=== PATIENT | male | born 1985 | race Caucasian/White ===

== ENCOUNTER 2019-05-24 23:33 | Emergency (ER) | payer OTHER ==
[~2019-05-24] VITALS: Ht 165.1 cm; Wt 72.6 kg
[2019-05-25] MEDS ORDERED: Flonase 0.05% N16 GM (00:13)
[2019-05-25] MEDS ORDERED: Augmentin 875-1 EACH PO (00:13)
== END 2019-05-25 00:30 | disposition home or self-care (01) ==
LOC: ER 23:33
DX: J01.90 Acute sinusitis, unspecified (principal); J32.1 Chronic frontal sinusitis; B96.89 Other specified bacterial agents as the cause of diseases classified elsewhere; F17.200 Nicotine dependence, unspecified, uncomplicated
CPT/HCPCS: 99282

== ENCOUNTER 2022-04-13 14:38 | Day surgery (SDC) | payer OTHER ==
[~2022-04-13] VITALS: Ht 167.6 cm; Wt 76.8 kg
[~2022-04-13 14:38] MED LIST: Augmentin 875-1 EACH PO; Flonase 0.05% N16 GM
[2022-04-13] MEDS ORDERED: LATANOPROST 0.7.5 M3 OP (15:23)
--- NOTE | 2022-04-13 15:25 | NUR ---
04/13/22 1525 Kofi Coello CALL LIGHT WITHIN REACH. JOCELIN IN AT 1515 IN RIGHT EYE AND AIME IN AT 1517
== END 2022-04-13 16:55 | disposition home or self-care (01) ==
LOC: ORSCSDS 14:38
PROVIDERS: Ophthalmology
PROC: 08DJ3ZZ Extraction of Right Lens, Percutaneous Approach (ICD-10-PCS; principal; 2022-04-13 16:00)
DX: H25.11 Age-related nuclear cataract, right eye (principal)
CPT/HCPCS: J2001; J2250; J3010; J3301; J7040; V2632

== ENCOUNTER 2022-05-04 13:10 | Day surgery (SDC) | payer OTHER ==
[~2022-05-04] VITALS: Ht 165.1 cm; Wt 76.4 kg
[~2022-05-04 13:10] MED LIST changes: +LATANOPROST 0.7.5 M3 OP
--- NOTE | 2022-05-04 13:48 | NUR ---
05/04/22 1348 Kofi Coello TETRACAINE TO LEFT EYE 1340 PLEDGET TO LEFT EYE AT 1342 BY [facility]
== END 2022-05-04 15:04 | disposition home or self-care (01) ==
LOC: ORSCSDS 13:10
PROVIDERS: Ophthalmology
PROC: 08DK3ZZ Extraction of Left Lens, Percutaneous Approach (ICD-10-PCS; principal; 2022-05-04 14:30)
DX: H25.12 Age-related nuclear cataract, left eye (principal); H30.22 Posterior cyclitis, left eye; Z96.1 Presence of intraocular lens; F17.210 Nicotine dependence, cigarettes, uncomplicated; Z79.899 Other long term (current) drug therapy
CPT/HCPCS: J2250; J3010; J3301; J7040; V2632

== ENCOUNTER 2023-05-20 12:51 | Inpatient (IN) | payer OTHER ==
[~2023-05-20] VITALS: Ht 165.1 cm; Wt 78.6 kg
[2023-05-20 14:52] LABS: BASOPHILS ABSOLUTE AUTO 0.06 K/mm3 (0.00-0.23); BASOPHILS PERCENT AUTO 1 % (0-2); EOSINOPHILS ABSOLUTE AUTO 0.22 K/mm3 (0.00-0.68); EOSINOPHILS PERCENT AUTO 2 % (0-6); Hematocrit 47.2 % (37.0-53.0); Hemoglobin 16.6 g/dL (13.5-17.5); IMMATURE GRAN ABSOLUTE AUTO 0.02 K/mm3 (0.00-0.10); IMMATURE GRAN PERCENT AUTO 0 % (0-1); LYMPHOCYTES PERCENT AUTO 30 % (21-46); MONOCYTES PERCENT AUTO 8 % (4-13); Mean Corpuscular HGB 34.8 pg (26.0-34.0); Mean Corpuscular HGB Conc 35.2 g/dL (31.5-36.5); Mean Corpuscular Volume 99 fL (80-100); Mean Platelet Volume 10.2 fL (9.1-12.4); NEUTROPHILS ABSOLUTE AUTO 6.26 K/mm3 (1.96-9.15); NEUTROPHILS PERCENT AUTO 60 % (41-73); Platelet Count 240 K/mm3 (150-400); RDW Coefficient Variation 11.9 % (11.7-14.2); RDW Standard Deviation 44.3 fL (35.1-46.3); Red Blood Cell Count 4.77 M/mm3 (4.30-5.90); White Blood Cell Count 10.46 K/mm3 (4.00-11.30)
[2023-05-20 15:09] LABS: Albumin, Blood 4.1 g/dL (3.4-5.0); Albumin/Globulin Ratio 1.3 (0.8-1.8); Bilirubin, Total 0.8 mg/dL (0.1-1.0); Bun/Creatinine Ratio 23.8 (12.0-20.0); C-REACTIVE PROTEIN, EXT RANGE 0.411 mg/dL (0.000-0.300); Calcium, Blood 9.2 mg/dL (8.5-10.1); Creatinine, Blood 0.71 mg/dL (0.60-1.20); Globulin, Blood 3.2 g/dL (2.2-4.0); Potassium, Blood 4.2 mmol/L (3.5-5.5); Total Protein, Blood 7.3 g/dL (6.4-8.2)
[2023-05-20] MEDS ORDERED: LISI20 PO (15:09)
[2023-05-20] MEDS ORDERED: Methocarbamol500 MG PO (15:10)
[2023-05-20] MEDS ORDERED: ATOR10 PO (15:11)
[2023-05-20] MEDS ORDERED: LATA.005SO BOTHEYES (15:12)
[2023-05-20] MEDS ORDERED: TADALAFIL5 M1 PO (15:12)
[2023-05-20] MEDS ORDERED: DEXTROSE 5% IV ONE (15:50)
[2023-05-20] MEDS ORDERED: METHYLPREDNISOLONE SOD SUCC IV ONE (15:50)
[2023-05-20 17:35] LABS: RBC Count, CSF 23 /mm3 (0-0); WBC Count, CSF 7 /mm3 (0-5)
[2023-05-20 17:43] LABS: RBC Count, CSF 0 /mm3 (0-0); WBC Count, CSF 3 /mm3 (0-5)
[2023-05-20 17:57] LABS: Appearance, CSF Clear (Clear); Color, CSF No Color (No Color)
[2023-05-20 18:25] LABS: Glucose, CSF 59 mg/dL (40-70)
[2023-05-20 18:30] LABS: Cryptococcus Neoformans/Gattii Not Detected (NOT DETECT); Enterovirus Not Detected (NOT DETECT); Escherichia Coli K1 Not Detected (NOT DETECT); Haemophilus Influenza Not Detected (NOT DETECT); Herpes Simplex Virus 1 Not Detected (NOT DETECT); Herpes Simplex Virus 2 Not Detected (NOT DETECT); Human Herpesvirus 6 Not Detected (NOT DETECT); Human Parechovirus Not Detected (NOT DETECT); Listeria Monocytogenes Not Detected (NOT DETECT); Neisseria Meningitidis Not Detected (NOT DETECT); Streptococcus Agalactiae Not Detected (NOT DETECT); Streptococcus Pneumoniae Not Detected (NOT DETECT); Varicella Zoster Virus Not Detected (NOT DETECT)
[2023-05-20] MEDS ORDERED: Acetaminophen 325 MG TABLET PO PRN (18:45)
[2023-05-20] MEDS ORDERED: Ondansetron HCl 2 MG / ML 2ML Vial IV PRN (18:45)
[2023-05-20] MEDS ORDERED: Methocarbamol 500 MG Tab PO PRN (18:45)
[2023-05-20] MEDS ORDERED: FLU VACC QS2023-24(6MOS UP)/PF 60 MCG/0.5 ML SYRINGE IM PRN (18:45)
[2023-05-20 19:19] LABS: Lymphocytes, CSF 64 % (40-80); Monocytes, CSF 36 % (15-45)
[2023-05-20] MEDS ORDERED: Atorvastatin 10 MG Tab PO SCH (21:00)
[2023-05-20] MEDS ORDERED: Latanoprost 0.005% Opth Soln 2.5 ML BOTHEYES SCH (21:00)
[2023-05-20 21:20] VITALS: BP 140/82
--- NOTE | 2023-05-21 05:19 | NUR ---
SHIFT SUMMERY , PT ARRIVED TO ROOM AND TRANSFRED HIMSELF TO BED. PTS AT BEDSIDE. PTS BROUGHT FOOD FOR PT TO EAT. PT HAS BEEN RESTING IN ROOM WITH AT BEDSIDE. CALL LIGHT IN REACH.
[2023-05-21 07:25] VITALS: BP 152/90
[2023-05-21] MEDS ORDERED: MethylPREDNISolone Sod Succ 1,000 MG in Dextrose 5% 50 ML IV SCH (09:00)
[2023-05-21] MEDS ORDERED: Lisinopril 20 MG Tab PO SCH (09:00)
[2023-05-21] MEDS ORDERED: Enoxaparin 40 MG/0.4 ML SYR SC SCH (09:00)
--- NOTE | 2023-05-21 09:00 | NUR ---
pt sitting up in bed awake a/ox4, spouce at bedside, pleasant and coopertive with care, follows commands well, denie pain except some tenderness around the L.P. site, tylenol given for that, lungs are clear t/o, resp even and unlabored, no cough noted, hrr, no edema noted, ppp+2, cap refill<3 sec, vs stable, afebrile, piv to rac site is clear and patent, btx4, abd flat soft nontender, voids without diff, skin c/w/d, maew, virgil, call light in reach.
[2023-05-21] MEDS ORDERED: Melatonin 5 MG Tablet PO PRN (11:20)
[2023-05-21] MEDS ORDERED: TraZODone HCl 50 MG Tab PO PRN (11:20)
[2023-05-21] MEDS ORDERED: TraMADol HCl 50 MG Tab PO PRN (11:20)
[2023-05-21 15:15] VITALS: BP 147/85
--- NOTE | 2023-05-21 18:25 | NUR ---
pt became tearful at one point today, he states he feels it's from the steroids, in room with him, he took a shower and reports that helped him to feel some better, have medicated for low back pain, no further changes this shift. call light in reach.
[2023-05-21 19:39] VITALS: BP 138/78
[2023-05-22 04:17] VITALS: BP 121/73
[2023-05-22] MEDS ORDERED: Calcium Carbonate 500 MG Tab Chew PO PRN (05:05)
[2023-05-22 07:43] VITALS: BP 124/76
[2023-05-22] MEDS ORDERED: Mag Hydrox/AL Hydrox/Simeth 30 ML UDC PO PRN (11:25)
[2023-05-22 16:03] VITALS: BP 117/80
--- NOTE | 2023-05-22 16:49 | NUR ---
SHIFT SUMMARY PT RECIEVED 2ND STEROID DOSE TODAY. TOLERATED WELL. UP AND SHOWERED TODAY. MEDICATED WITH TYLENOL AND TRAMADOL TO HELP WITH LOWER BACK PAIN. PT STATES IT IS IMPROVED THIS AFTERNOON. REQUESTING TUMS ONCE, BUT THEN DECIDED HE DID NOT NEED THEM. NO OTHER ACUTE CHANGES IN ASSESSMENT AT THIS TIME. VS REVIEWED. CALL LIGHT IN REACH. AT BEDSIDE. PT DENIES OTHER NEEDS AT THIS TIME.
[2023-05-22 19:25] VITALS: BP 132/78
[2023-05-23 04:08] VITALS: BP 130/75
[2023-05-23 07:27] VITALS: BP 157/102
--- NOTE | 2023-05-23 09:39 | NUR ---
SHIFT SUMMARY PT IS A&OX4, VSS ON RA. NO ACUTE CHANGES THIS SHIFT. C/O PAIN IN HIS BACK. PT STATES THAT HE FEELS SO MUCH BETTER AFTER GETTING THE STEROIDS. UP AD EARNEST, INDEPENDENTLY WITH CANE. EQUAL SPOT REMOVER AND STRENGHT T/O. VOIDING IN BR. BED IN LOWEST POSITION, CALL LIGHT WITHIN REACH.
--- NOTE | 2023-05-23 11:57 | NUR ---
Upon receiving a referral for [facility], [facility] The patient immediately explains about the new on-set of M.S., the multiple health related issues he has had and the plan moving forward. He shares about the of his son after he lived for only 45 minutes following andhis [facility] at [facility] for several yrs. We talk about grief, his spiritual journey and his recent (within the last 6 months) return to his [place]. He tells me ahow this [place] now is a strength to him even in the midst of this new diagnosis. I normalize his mental process, reinforce helpful attitudes and perspectives and provide therapeutic listening, grief support, theological insights, gentle career technical counselor and prayer. PAtient responded well and showed signs of reduced stress. I will continue to remain available to patient and family.
[2023-05-23 15:21] VITALS: BP 154/93
--- NOTE | 2023-05-23 18:04 | NUR ---
SHIFT SUMMARY: PT A&O X4. PLEASANT AND COOPERATIVE WITH ALL CARE. NO ACUTE CHANGES THIS SHIFT. PLAN FOR PT TO STAY ONE MORE NIGHT TO FINISH IV ABX. PT AGREEABLE TO PLAN. WORKED WITH PT TODAY D/T MS. PT RECEIVES OUTPT PHYSICAL THERAPY. PT C/O PAIN TWICE IN LOWER BACK. MEDICATED PER EMAR. NEW IV PLACED IN L. HAND D/T LEAKING. CALL LIGHT IN REACH. BED IN LOWEST POSITION.
[2023-05-23 19:10] VITALS: BP 157/96
[2023-05-24 03:03] VITALS: BP 109/71
--- NOTE | 2023-05-24 04:18 | NUR ---
SHIFT SUMMARY PT WAS MEDICATED FOR PAIN ONE TIME THIS SHIFT AT BEDTIME. PT HAS BEEN RESTING QUIETLY MOST OF THE NIGHT. USES CALL LIGHT APPROPRIATELY AND IS ABLE TO MAKE NEEDS KNOWN. WILL CONTINUE TO PROVIDE CARE AND MONITOR T/O SHIFT.
[2023-05-24 07:41] VITALS: BP 130/84
[2023-05-24] MEDS ORDERED: Docusate Sodium 100 MG Cap PO ONE (11:15)
[2023-05-24] MEDS ORDERED: TUMS500 MG PO (11:46)
[2023-05-24] MEDS ORDERED: Acetaminophen325 M1 PO (11:46)
[2023-05-24] MEDS ORDERED: MELATONIN5 M1 PO (11:47)
--- NOTE | 2023-05-24 13:38 | NUR ---
DISCHARGE NOTE PT DISCHARGED TO HOME, IV REMOVED. DISCHARGE EDUCATION AND INFORMATION PROVIDED TO THE PT.
== END 2023-05-24 13:05 | disposition home or self-care (01) | DRG 60 ==
LOC: ER 12:51 → MEDS 18:42 → ENPENDDIS 05-24 09:52 → MEDS 05-24 13:05
PROVIDERS: Physician Assistant; ADMIT Internal Medicine
PROC: 009U3ZX Drainage of Spinal Canal, Percutaneous Approach, Diagnostic (ICD-10-PCS; principal; 2023-05-20)
DX: G35 Multiple sclerosis (principal); I10 Essential (primary) hypertension; E78.5 Hyperlipidemia, unspecified; F17.210 Nicotine dependence, cigarettes, uncomplicated; G47.00 Insomnia, unspecified; K21.9 Gastro-esophageal reflux disease without esophagitis
CPT/HCPCS: 62270; 80053; 82945; 84157; 85025; 85651; 86140; 86255; 86362; 87070; 87205; 87483; 89051; 96365-59; 97110; 97116; 97162; 99285-25; A9270; J1650; J2930

== ENCOUNTER 2023-05-27 10:33 | Emergency (ER) | payer OTHER ==
[~2023-05-27] VITALS: Ht 165.1 cm; Wt 79.4 kg
[~2023-05-27 10:33] MED LIST changes: +ATOR10 PO; +Acetaminophen325 M1 PO; +LATA.005SO BOTHEYES; +LISI20 PO; +MELATONIN5 M1 PO; +Methocarbamol500 MG PO; +TADALAFIL5 M1 PO; +TUMS500 MG PO
[2023-05-27] MEDS ORDERED: NS 1,000 ML IV SCH (11:35)
[2023-05-27 12:00] VITALS: BP 129/87
[2023-05-27 12:23] LABS: BASOPHILS ABSOLUTE AUTO 0.05 K/mm3 (0.00-0.23); BASOPHILS PERCENT AUTO 0 % (0-2); EOSINOPHILS ABSOLUTE AUTO 0.13 K/mm3 (0.00-0.68); EOSINOPHILS PERCENT AUTO 1 % (0-6); Hematocrit 47.2 % (37.0-53.0); IMMATURE GRAN ABSOLUTE AUTO 0.15 K/mm3 (0.00-0.10); IMMATURE GRAN PERCENT AUTO 1 % (0-1); LYMPHOCYTES ABSOLUTE AUTO 2.01 K/mm3 (0.84-5.20); LYMPHOCYTES PERCENT AUTO 16 % (21-46); MONOCYTES ABSOLUTE AUTO 0.61 K/mm3 (0.16-1.47); MONOCYTES PERCENT AUTO 5 % (4-13); Mean Corpuscular HGB 35.1 pg (26.0-34.0); Mean Corpuscular Volume 97 fL (80-100); NEUTROPHILS ABSOLUTE AUTO 9.56 K/mm3 (1.96-9.15); NEUTROPHILS PERCENT AUTO 76 % (41-73); Platelet Count 223 K/mm3 (150-400); RDW Coefficient Variation 11.9 % (11.7-14.2); RDW Standard Deviation 42.6 fL (35.1-46.3); Red Blood Cell Count 4.85 M/mm3 (4.30-5.90); White Blood Cell Count 12.51 K/mm3 (4.00-11.30)
[2023-05-27 12:39] LABS: Albumin, Blood 3.4 g/dL (3.4-5.0); Albumin/Globulin Ratio 1.1 (0.8-1.8); Bilirubin, Total 0.6 mg/dL (0.1-1.0); Bun/Creatinine Ratio 22.2 (12.0-20.0); Calcium, Blood 8.8 mg/dL (8.5-10.1); Creatinine, Blood 0.63 mg/dL (0.60-1.20); Globulin, Blood 3.1 g/dL (2.2-4.0); Potassium, Blood 4.3 mmol/L (3.5-5.5); Total Protein, Blood 6.5 g/dL (6.4-8.2)
== END 2023-05-27 13:48 | disposition home or self-care (01) ==
LOC: ER 10:33
PROVIDERS: Emergency Medicine
DX: K59.00 Constipation, unspecified (principal); G35 Multiple sclerosis; F17.290 Nicotine dependence, other tobacco product, uncomplicated
CPT/HCPCS: 74018; 80053; 85025; 96360; 99283-25; J7030

== ENCOUNTER 2023-09-27 00:57 | Day surgery (SDC) | payer OTHER ==
[2023-09-27] MEDS ORDERED: OCRELIZUMAB 300 MG in NS 250 ML IV SCH (06:00)
[2023-09-27] MEDS ORDERED: Acetaminophen 325 MG TABLET PO SCH (07:15)
[2023-09-27] MEDS ORDERED: MethylPREDNISolone Sod Succ 125 MG Vial IV SCH (07:15)
[2023-09-27] MEDS ORDERED: DiphenhydrAMINE HCL 25 MG Cap PO SCH (07:15)
[2023-09-27 07:50] VITALS: BP 119/88
[2023-09-27 09:03] VITALS: BP 98/54
[2023-09-27 09:34] VITALS: BP 113/68
[2023-09-27] MEDS ORDERED: CETI5 PO (09:44)
--- NOTE | 2023-09-27 10:00 | NUR ---
PT STATES HE IS STILL ITCHY. RATE CONTINUES AT 45CC/HR. HE IS ALERT AND WATCHING SOMETHING ON HIS PHONE. AT CHAIR SIDE. PT DOES NOT SEEM OVERLY ANXIOUS.
[2023-09-27] MEDS ORDERED: DiphenhydrAMINE HCl 50 MG/ML 1ML Vial IV SCH (10:15)
[2023-09-27 13:08] VITALS: BP 112/83
== END 2023-09-27 13:12 | disposition home or self-care (01) ==
LOC: ATC 00:57
DX: G35 Multiple sclerosis (principal); F32.9 Major depressive disorder, single episode, unspecified; E78.5 Hyperlipidemia, unspecified; I10 Essential (primary) hypertension; Z79.899 Other long term (current) drug therapy
CPT/HCPCS: 96365; 96366; 96375; A9270; J1200; J2350; J2919; J7050

== ENCOUNTER 2023-10-11 07:36 | Day surgery (SDC) | payer OTHER ==
[2023-10-11] VITALS (7 sets, daily range): BP systolic 96–121; BP diastolic 55–86
[~2023-10-11 07:36] MED LIST changes: +Acetaminophen 325 MG TABLET PO SCH; +CETI5 PO; +DiphenhydrAMINE HCl 50 MG/ML 1ML Vial IV SCH; +MethylPREDNISolone Sod Succ 125 MG Vial IV SCH; +OCRELIZUMAB 300 MG in NS 250 ML IV SCH
--- NOTE | 2023-10-11 12:20 | NUR ---
PT REMAINED IN ROOM 3 1 HOUR POST INFUSION. PT HAD NO ISSUES DURING AND 1 HOUR POST INFUSION. PT REPORTS IV BENADRYL DID THE TRICK THIS APPT HE HAD NO ITCHING OR FLUSHING. PT RESTED MOST OF HIS APPT. HIS SIGNIFICANT OTHER IS DRIVING HIM HOME
== END 2023-10-11 12:11 | disposition home or self-care (01) ==
LOC: ATC 07:36
DX: G35 Multiple sclerosis (principal); I10 Essential (primary) hypertension; E78.5 Hyperlipidemia, unspecified; Z79.899 Other long term (current) drug therapy; Z87.891 Personal history of nicotine dependence
CPT/HCPCS: 96365; 96366; 96375; A9270; J1200; J2350; J2919; J7050

== ENCOUNTER 2024-04-12 08:13 | Day surgery (SDC) | payer OTHER ==
[2024-04-12 08:10] VITALS: BP 121/81
[~2024-04-12 08:13] MED LIST changes: -OCRELIZUMAB 300 MG in NS 250 ML IV SCH; +OCRELIZUMAB 600 MG in NS 500 ML IV SCH
[2024-04-12] MEDS ORDERED: BACLOFEN10 M4 PO (08:22)
[2024-04-12 09:08] VITALS: BP 116/72
[2024-04-12 09:40] VITALS: BP 112/81
[2024-04-12 10:11] VITALS: BP 117/82
[2024-04-12 10:42] VITALS: BP 101/72
[2024-04-12 13:25] VITALS: BP 120/87
== END 2024-04-12 13:29 | disposition home or self-care (01) ==
LOC: ATC 08:13
DX: G35 Multiple sclerosis (principal); I10 Essential (primary) hypertension; E78.5 Hyperlipidemia, unspecified; M48.02 Spinal stenosis, cervical region; Z79.899 Other long term (current) drug therapy
CPT/HCPCS: 96365; 96366; 96375; A9270; J1200; J2350; J2919; J7040